=== PATIENT | female | born 1970 | race Caucasian/White ===

== ENCOUNTER → 2017-10-21 | Outpatient (CLI) | payer OTHER ==
[2013-03-05 09:29] VITALS: BP 88/54
--- NOTE | 2017-10-21 17:21 | RAD ---
Examination: Chest, PA and lateral views History: Preop Comparison reference: 10/26/2014 Findings: Continued normal heart size with clear lungs and pleural spaces. Impression: No change; no acute disease. Reported By:
== END ==
LOC: RAD 16:39
PROVIDERS: ATTEND Obstetrics & Gynecology Obstetrics
DX: Z01.811 Encounter for preprocedural respiratory examination (principal); E66.3 Overweight
CPT/HCPCS: 71020